=== PATIENT | male | born 1970 | race Caucasian/White ===

== ENCOUNTER 2019-05-28 06:25 | Emergency (ER) | payer OTHER, SELFPAY ==
[2019-05-28] MEDS ORDERED: HYDROcodone/Acetaminophen 10/325 mg Tablet ONE (07:03)
[2019-05-28] MEDS ORDERED: Ibuprofen 800 MG TAB ONE (07:03)
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
== END 2019-05-28 08:40 | disposition home or self-care (01) ==
LOC: BURERS 06:25
DX: S63.502A Unspecified sprain of left wrist, initial encounter (principal); S63.501A Unspecified sprain of right wrist, initial encounter; S00.83XA Contusion of other part of head, initial encounter; S00.31XA Abrasion of nose, initial encounter; J45.909 Unspecified asthma, uncomplicated; Z79.51 Long term (current) use of inhaled steroids; V89.2XXA Person injured in unspecified motor-vehicle accident, traffic, initial encounter
CPT/HCPCS: 70450; 71045; 72131

== ENCOUNTER 2023-06-11 21:44 | Emergency (ER) | payer OTHER, SELFPAY ==
[2023-06-11] MEDS ORDERED: Boostrix 0.5 ML (Tdap) VIAL (>/=7 yrs of age) ONE (22:07)
== END 2023-06-11 23:21 | disposition home or self-care (01) ==
LOC: BURERS 21:44
DX: S20.219A Contusion of unspecified front wall of thorax, initial encounter (principal); S50.10XA Contusion of unspecified forearm, initial encounter; V67.0XXA Driver of heavy transport vehicle injured in collision with fixed or stationary object in nontraffic accident, initial encounter
CPT/HCPCS: 71250; 90471; 90715